=== PATIENT | female | born 1975 | race Caucasian/White ===

== ENCOUNTER 2018-04-17 13:46 | Emergency (ER) | payer MEDICAID ==
[2018-04-17 15:25] LABS: URINE BLOOD (Dip) POC 2+ (NEGATIVE); URINE GLUCOSE (Dip) POC Negative (NEGATIVE); URINE KETONES (Dip) POC Negative (NEGATIVE); URINE LEUKOCYTE EST (Dip) POC 2+ (NEGATIVE); URINE NITRITE (Dip) POC Positive (NEGATIVE); URINE TOTAL PROTEIN POC 2+ (NEGATIVE)
[2018-04-17 15:25] LABS: URINE PH (Dip) POC 5.5 (5.0-8.5)
[2018-04-17] MEDS: morphine (ER) 15 MG TAB PO (15:37)
[2018-04-17] MEDS: CIPROFLOXACIN 500 MG TAB PO (16:20)
[2018-04-17] MEDS: KETOROLAC 30 MG INJ IM (16:52)
== END 2018-04-17 17:00 | disposition home or self-care (01) ==
LOC: FTE 13:46
DX: N39.0 Urinary tract infection, site not specified (principal); R10.2 Pelvic and perineal pain
CPT/HCPCS: 76775; 81003; 81025; 96372; 99285-25

== ENCOUNTER 2018-06-06 01:00 | Emergency (ER) | payer MEDICAID | END 2018-06-06 02:43 | disposition home or self-care (01) | LOC: FTE 01:00 | DX: R51 Headache (principal); F17.210 Nicotine dependence, cigarettes, uncomplicated | CPT/HCPCS: 99283; Z7502 ==

== ENCOUNTER 2018-11-02 23:02 | Emergency (ER) | payer MEDICAID ==
[2018-11-02] MEDS: ONDANSETRON 4 MG INJ IV (23:59)
[2018-11-03 00:28] LABS: ADD MAN DIFF? NO
[2018-11-03] MEDS: SOD CHLORIDE 0.9% 1,000 ML IV (00:28)
[2018-11-03 00:34] LABS: BASOPHILS % 0.4 % (0.0-2.0); EOSINOPHILS # 0.1 10^3/ul (0.0-0.5); EOSINOPHILS % 1.7 % (0.0-7.0); HEMATOCRIT 34.4 % (37.0-47.0); HEMOGLOBIN 11.4 g/dl (12.0-16.0); LYMPHOCYTES # 3.2 10^3/ul (0.8-2.9); LYMPHOCYTES % 38.7 % (15.0-51.0); MEAN CORPUSCULAR HEMOGLOBIN 30.5 pg (29.0-33.0); MEAN CORPUSCULAR HGB CONC 33.1 g/dl (32.0-37.0); MEAN PLATELET VOLUME 9.7 fl (7.4-10.4); MONOCYTE # 0.6 10^3/ul (0.3-0.9); MONOCYTES % 6.6 % (0.0-11.0); NEUTROPHIL # 4.4 10^3/ul (1.6-7.5); NEUTROPHILS % 52.4 % (39.0-77.0); PLATELET COUNT 320 10^3/UL (140-415); RED BLOOD COUNT 3.74 10^6/ul (4.20-5.40); RED CELL DISTRIBUTION WIDTH 13.2 % (11.5-14.5)
[2018-11-03 00:34] LABS: WHITE BLOOD COUNT 8.4 10^3/ul (4.8-10.8)
[2018-11-03 00:54] LABS: ALANINE AMINOTRANSFERASE 16 IU/L (13-69); ALBUMIN 4.3 g/dl (3.3-4.9); ALBUMIN/GLOBULIN RATIO 1.48; ALKALINE PHOSPHATASE 81 IU/L (42-121); ANION GAP 13 (5-13); ASPARTATE AMINO TRANSFERASE 19 IU/L (15-46); BLOOD UREA NITROGEN 10 mg/dl (7-20); CALCIUM 9.2 mg/dl (8.4-10.2); CARBON DIOXIDE 26 mmol/L (21-31); CHLORIDE 103 mmol/L (97-110); CREATININE 0.45 mg/dl (0.44-1.00); Estimated GFR > 60 mL/min (>60); GLUCOSE 88 mg/dl (70-220); LIPASE 101 U/L (23-300); POTASSIUM 3.7 mmol/L (3.5-5.1); SODIUM 142 mmol/L (135-144); TOTAL PROTEIN 7.2 g/dl (6.1-8.1)
[2018-11-03 00:55] LABS: INR 0.95; PROTIME 12.8 Sec (11.9-14.9)
[2018-11-03 01:30] LABS: ADD UMIC YES; UR ASCORBIC ACID NEGATIVE (NEGATIVE); UR BILIRUBIN (Dip) NEGATIVE (NEGATIVE); UR BLOOD (Dip) NEGATIVE (NEGATIVE); UR CLARITY CLEAR (CLEAR); UR COLOR STRAW (YELLOW); UR GLUCOSE (Dip) NEGATIVE (NEGATIVE); UR KETONES (Dip) NEGATIVE (NEGATIVE); UR LEUKOCYTE ESTERASE (Dip) TRACE Leu/ul (NEGATIVE); UR NITRITE (Dip) NEGATIVE (NEGATIVE); UR RBC 1 /HPF (0-5); UR SPECIFIC GRAVITY (Dip) 1.008 (1.003-1.030); UR SQUAMOUS EPITHELIAL CELL FEW /HPF (FEW); UR TOTAL PROTEIN (Dip) NEGATIVE (NEGATIVE); UR UROBILINOGEN (Dip) NEGATIVE (NEGATIVE); UR WBC 8 /HPF (0-5)
[2018-11-03] MEDS: KETOROLAC 15 MG INJ IV (02:48)
== END 2018-11-03 02:55 | disposition home or self-care (01) ==
LOC: E/R 23:02
DX: N30.00 Acute cystitis without hematuria (principal); D64.9 Anemia, unspecified
CPT/HCPCS: 36415; 80053; 81001; 83690; 85025; 85610; 87040; 87086; 96374; 99285-25

== ENCOUNTER 2019-08-06 09:16 | Emergency (ER) | payer MEDICAID ==
[2019-08-06] MEDS: LORAZEPAM 1 MG TAB PO (10:18)
== END 2019-08-06 11:49 | disposition home or self-care (01) ==
LOC: FTE 09:16
DX: F41.9 Anxiety disorder, unspecified (principal)
CPT/HCPCS: 81025; 99283